=== PATIENT | male | born 1980 | race Hispanic/Latino ===

== ENCOUNTER 2017-10-08 10:03 | Emergency (ER) | payer BC ==
[2017-10-08] MEDS ORDERED: Adacel (T-DAP) 0.5 ML VIAL ONE (10:12)
[2017-10-08] MEDS ORDERED: Lidocaine 1% w/Epinephrine 1:100K 20 ML VIAL ONE (10:12)
== END 2017-10-08 10:40 | disposition home or self-care (01) ==
LOC: ERS 10:03
DX: S71.111A Laceration without foreign body, right thigh, initial encounter (principal); W26.0XXA Contact with knife, initial encounter
CPT/HCPCS: 12001; 90471; 90715; J2001

== ENCOUNTER 2025-04-23 08:31 | Emergency (ER) | payer SELFPAY ==
[2025-04-23] MEDS ORDERED: HYDROcodone/Acetaminophen 5/325 mg Tablet ONE (09:13)
[2025-04-23] MEDS ORDERED: Amoxicillin/Potassium Clav 875 MG TAB ONE (09:13)
[2025-04-23] MEDS ORDERED: Ketorolac Tromethamine 30 MG (1 mL) VIAL ONE (09:13)
== END 2025-04-23 10:09 | disposition home or self-care (01) ==
LOC: ERS 08:31
DX: K04.7 Periapical abscess without sinus (principal)
CPT/HCPCS: 96372; 99282; J1885